=== PATIENT | female | born 2000 | race Caucasian/White ===

== ENCOUNTER 2023-07-28 15:18 | Emergency (ER) | payer OTHER ==
[~2023-07-28] VITALS: Ht 152.4 cm; Wt 59.4 kg
[2023-07-28 15:23] VITALS: BP 128/73; PULSE 71; RESP 18; TEMP 98.1; O2SAT 100
[2023-07-28] MEDS ORDERED: EMTR1TAB12 PO ×2 (17:01→17:36)
[2023-07-28] MEDS ORDERED: RALT400T PO ×2 (17:01→17:36)
[2023-07-28 17:04] VITALS: BP 128/73; PULSE 71; RESP 18; TEMP 98.1; O2SAT 100
[2023-07-29 07:08] LABS: HEPATITIS A ANTIBODY IGM Negative (Negative); HEPATITIS B CORE AB TOTAL Negative (Negative); HEPATITIS B CORE, IGM Negative (Negative); HEPATITIS B SURFACE ANTIBODY Reactive (.); HEPATITIS B SURFACE ANTIGEN Negative (Negative); HEPATITIS C VIRUS ANTIBODY Non Reactive (Non Reactive); HIV 1/0/2 ABS, QUAL Non Reactive (Non Reactive)
[2023-07-29 20:44] LABS: HEPATITIS A ANTIBODY TOTAL Positive (Negative)
== END 2023-07-28 17:04 | disposition home or self-care (01) ==
LOC: MED 15:18
DX: S61.432A Puncture wound without foreign body of left hand, initial encounter (principal); W46.0XXA Contact with hypodermic needle, initial encounter; Y93.89 Activity, other specified; Y92.89 Other specified places as the place of occurrence of the external cause; Y99.8 Other external cause status
CPT/HCPCS: 36415; 86702; 86704; 86706; 86708; 86709; 86803; 87340; 99283